=== PATIENT | male | born 1995 | race Hispanic/Latino ===

== ENCOUNTER 2017-12-07 22:25 | Emergency (ER) | payer OTHER ==
[2017-12-07] MEDS ORDERED: HYDROXYZINE HCL 25 MG TABLET ONE (22:30)
== END 2017-12-07 23:03 | disposition home or self-care (01) ==
LOC: EDH 22:25
DX: F41.9 Anxiety disorder, unspecified (principal); F32.9 Major depressive disorder, single episode, unspecified

== ENCOUNTER 2021-05-09 21:59 | Emergency (ER) | payer OTHER ==
[~2021-05-09] VITALS: Ht 167.6 cm; Wt 72.6 kg
[2021-05-09 22:02] VITALS: BP 138/51
[2021-05-09] MEDS ORDERED: IBUPROFEN 600 MG TABLET PO ONE (23:30)
[2021-05-09] MEDS ORDERED: CYCLOBENZAPRINE HCL 10 MG TABLET PO ONE (23:30)
[2021-05-09] MEDS ORDERED: MELO7.5T12 PO (23:33)
[2021-05-09] MEDS ORDERED: CYCL-309 PO (23:33)
== END 2021-05-09 23:42 | disposition home or self-care (01) ==
LOC: EDH 21:59
DX: S46.911A Strain of unspecified muscle, fascia and tendon at shoulder and upper arm level, right arm, initial encounter (principal); M62.838 Other muscle spasm; Z79.1 Long term (current) use of non-steroidal anti-inflammatories (NSAID); V49.88XA Car occupant (driver) (passenger) injured in other specified transport accidents, initial encounter; Y93.89 Activity, other specified; Y92.89 Other specified places as the place of occurrence of the external cause; Y99.8 Other external cause status

== ENCOUNTER 2021-05-23 20:05 | Emergency (ER) | payer OTHER ==
[~2021-05-23] VITALS: Ht 167.6 cm; Wt 70.3 kg
[~2021-05-23 20:05] MED LIST: CYCL-309 PO; MELO7.5T12 PO
[2021-05-23] MEDS ORDERED: KETOROLAC 60 MG VIAL (30MG/ML) IM ONE (20:30)
[2021-05-23] MEDS ORDERED: CYCLOBENZAPRINE HCL 10 MG TABLET PO ONE (20:30)
[2021-05-23] MEDS ORDERED: HYDROCODONE/ACETAMINOPHEN 10/325 MG TAB PO ONE (20:30)
[2021-05-23] MEDS ORDERED: NAPR-1180 PO (20:37)
[2021-05-23] MEDS ORDERED: CYCL10TA16 PO (20:37)
[2021-05-23 21:19] VITALS: BP 143/71
== END 2021-05-23 21:29 | disposition home or self-care (01) ==
LOC: EDH 20:05
DX: S39.012A Strain of muscle, fascia and tendon of lower back, initial encounter (principal); Z79.1 Long term (current) use of non-steroidal anti-inflammatories (NSAID); W11.XXXA Fall on and from ladder, initial encounter; Y93.89 Activity, other specified; Y92.89 Other specified places as the place of occurrence of the external cause; Y99.8 Other external cause status
CPT/HCPCS: 96372; 99283; J1885